=== PATIENT | female | born 1950 | race Caucasian/White ===

== ENCOUNTER 2021-01-08 15:46 | Inpatient (IN) | payer MEDICARE, MEDICAID ==
[~2021-01-08] VITALS: Ht 152.4 cm; Wt 27.0 kg
[2021-01-08] MEDS ORDERED: SODIUM CHLORIDE 0.9% 1,000 ML IV ONE ×2 (16:00→19:30)
[2021-01-08] MEDS ORDERED: DexAMETHasone SOD PHOS 10MG/1ML VIAL INJ IV ONE (16:00)
[2021-01-08] MEDS ORDERED: cefTRIAXone 1GM/50ML D5W 50 ML IV ONE (16:00)
[2021-01-08 17:38] LABS: Basophils # (auto) 0.1 10 ^3/uL (0-0.2); Basophils % (auto) 1.9 % (0.0-2.0); Eosinophils # (auto) 0 10 ^3/uL (0-0.8); Eosinophils % (auto) 0.1 % (0.0-7.0); Hemoglobin 11.2 g/dL (12.2-16.2); Lymphocytes # (auto) 0.6 10 ^3/uL (0.4-5.4); Lymphocytes % (auto) 15.7 % (10.0-50.0); Mean Corpuscular Hemoglobin 33.1 pg (28.0-32.0); Mean Corpuscular Hgb Conc. 33.8 g/dL (32.0-36.0); Mean Corpuscular Volume 97.7 fL (80.0-100.0); Monocytes # (auto) 0.2 10 ^3/uL (0-1.3); Monocytes % (auto) 6.1 % (0.0-12.0); Neutrophils # (auto) 3.1 10 ^3/uL (1.6-8.6); Neutrophils % (auto) 76.2 % (37.0-80.0); Nucleated Red Blood Cells % 0.2 %; Platelet Count (auto) 324 10^3/uL (140-450); Red Blood Cells 3.38 10^6/uL (4.0-5.20); Red Cell Distribution Width 14.1 % (11.8-14.3); White Blood Cell 4.1 10^3/uL (4.4-10.8)
[2021-01-08 18:06] LABS: Albumin 2.7 g/dL (3.4-5.0); Calcium 8.7 mg/dL (8.5-10.1); Potassium 4.3 mmol/L (3.5-5.1)
[2021-01-08 18:15] LABS: BUN/Creatinine Ratio 22.9; Bilirubin, Total 0.2 mg/dL (0.2-1.0); CRP High Sensitivity 3.69 mg/dL (< 0.3); Total Protein 7.2 g/dL (6.4-8.2)
[2021-01-08] MEDS ORDERED: ENOXAPARIN SOD 40 MG/0.4 ML SYRINGE SC ONE (18:30)
[2021-01-08] MEDS ORDERED: MORPHINE SULF INJ 2 MG/ML SYRINGE 1ML IV PRN (19:30)
[2021-01-08] MEDS ORDERED: REMDESIVIR PER PHARMACY 0 ML IV SCH (19:30)
[2021-01-08] MEDS ORDERED: ACETAMINOPHEN 500 MG TAB PO PRN (19:30)
[2021-01-08] MEDS ORDERED: NITROGLYCERIN 0.4 MG SL TAB SL PRN (19:30)
[2021-01-08 19:34] VITALS: BP 132/69
[2021-01-08 20:40] VITALS: BP 122/71
[2021-01-08 22:24] VITALS: BP 122/71
[2021-01-08] MEDS: CARBIDOPA W LEVODOPA 25/100mg TABLET PO SCH (22:37)
[2021-01-08] MEDS: DOXYCYCLINE 100MG/250ML 250 ML IV SCH (22:37)
[2021-01-08] MEDS ORDERED: TEMAZEPAM 15 MG CAP PO ONE (22:45)
[2021-01-08] MEDS ORDERED: PNEUMOCOCCAL VACC POLYS 25 MCG/0.5 ML VIAL IM ONE (23:00)
[2021-01-08] MEDS ORDERED: CARB25TA22 PO (23:06)
[2021-01-08] MEDS ORDERED: ONDA-144 PO (23:06)
[2021-01-08] MEDS ORDERED: NAP500T PO (23:06)
[2021-01-08] MEDS ORDERED: LOSA25TA2 PO (23:06)
[2021-01-08] MEDS ORDERED: MELO1TAB56 PO (23:06)
[2021-01-08] MEDS ORDERED: LEVO112T4 PO (23:06)
[2021-01-08] MEDS ORDERED: MIRT-66 PO (23:06)
[2021-01-09 05:00] VITALS: BP 136/74
[2021-01-09] MEDS: CARBIDOPA W LEVODOPA 25/100mg TABLET PO SCH ×3 (06:37→22:16)
[2021-01-09 06:39] LABS: Basophils # (auto) 0 10 ^3/uL (0-0.2); Basophils % (auto) 0.4 % (0.0-2.0); Eosinophils # (auto) 0 10 ^3/uL (0-0.8); Hematocrit 28.6 % (36.0-46.0); Hemoglobin 9.8 g/dL (12.2-16.2); Lymphocytes # (auto) 0.4 10 ^3/uL (0.4-5.4); Lymphocytes % (auto) 15.9 % (10.0-50.0); Mean Corpuscular Hemoglobin 33.8 pg (28.0-32.0); Mean Corpuscular Hgb Conc. 34.4 g/dL (32.0-36.0); Mean Corpuscular Volume 98.3 fL (80.0-100.0); Monocytes # (auto) 0.1 10 ^3/uL (0-1.3); Monocytes % (auto) 3.6 % (0.0-12.0); Neutrophils # (auto) 2.2 10 ^3/uL (1.6-8.6); Neutrophils % (auto) 80.1 % (37.0-80.0); Nucleated Red Blood Cells % 0.2 %; Platelet Count (auto) 303 10^3/uL (140-450); Red Blood Cells 2.92 10^6/uL (4.0-5.20); Red Cell Distribution Width 14.2 % (11.8-14.3); White Blood Cell 2.8 10^3/uL (4.4-10.8)
[2021-01-09 06:55] LABS: Albumin 2.3 g/dL (3.4-5.0); Calcium 8.1 mg/dL (8.5-10.1); Potassium 4.5 mmol/L (3.5-5.1)
[2021-01-09 07:00] LABS: Bilirubin, Total 0.2 mg/dL (0.2-1.0); Total Protein 6.5 g/dL (6.4-8.2)
[2021-01-09 08:00] VITALS: BP 129/74
[2021-01-09] MEDS: ALBUTEROL SULF HFA 90MCG INH 200DOSE IN PRN (09:53)
[2021-01-09] MEDS: DexAMETHasone SOD PHOS 10MG/1ML VIAL INJ IV SCH (10:08)
[2021-01-09] MEDS: ASCORBIC ACID 1,000 MG TAB PO SCH (10:08)
[2021-01-09] MEDS: CHOLECALCIFEROL (VITD3) 2,000 UNIT CAP/TAB PO SCH (10:08)
[2021-01-09] MEDS: DOXYCYCLINE 100MG/250ML 250 ML IV SCH ×2 (10:08→22:15)
[2021-01-09] MEDS: ZINC SULFATE 220mg CAP or TAB PO SCH (10:08)
[2021-01-09] MEDS: ENOXAPARIN SOD 40 MG/0.4 ML SYRINGE SC SCH ×2 (10:09→22:16)
[2021-01-09 11:40] LABS: Urine Bacteria FEW /hpf (None Seen); Urine Blood Negative /uL (Negative); Urine Specific Gravity 1.016 (1.001-1.035); Urine WBC 13 /hpf (0 - 5)
[2021-01-09 12:00] VITALS: BP 137/74
[2021-01-09] MEDS ORDERED: REMDESIVIR IV ONE (15:00)
[2021-01-09] MEDS ORDERED: REMDESIVIR PER PHARMACY 0 ML IV SCH (15:00)
[2021-01-09] MEDS ORDERED: SODIUM CHL 0.9% IV ONE (15:00)
[2021-01-09] MEDS ORDERED: NICOTINE 14 MG/24HR TOPICAL PATCH TD ONE (15:00)
[2021-01-09 15:12] LABS: % Iron Saturation 12.9 % (15-50)
[2021-01-09 16:00] VITALS: BP 138/85
[2021-01-09] MEDS: ACCU-CHEK COMFORT CURVE STRIP VI SCH ×2 (19:01→22:17)
[2021-01-09] MEDS: InsuLIN REG 1unit/0.01ml Soln (100units/ml) SC SCH ×2 (19:04→22:00)
[2021-01-09 22:03] VITALS: BP 148/67
[2021-01-09] MEDS: MIRTAZAPINE 30 MG TAB PO SCH (22:16)
[2021-01-09] MEDS ORDERED: TEMAZEPAM 15 MG CAP PO PRN (23:00)
[2021-01-10] VITALS (7 sets, daily range): BP systolic 126–145; BP diastolic 63–83
[2021-01-10] MEDS: CARBIDOPA W LEVODOPA 25/100mg TABLET PO SCH ×3 (06:25→21:46)
[2021-01-10] MEDS: LEVOTHYROXINE SODIUM 100 MCG TAB PO SCH (06:25)
[2021-01-10] MEDS: InsuLIN REG 1unit/0.01ml Soln (100units/ml) SC SCH ×4 (06:26→22:00)
[2021-01-10] MEDS: ACCU-CHEK COMFORT CURVE STRIP VI SCH ×4 (06:26→21:46)
[2021-01-10 07:32] LABS: Basophils # (auto) 0 10 ^3/uL (0-0.2); Basophils % (auto) 0.3 % (0.0-2.0); Eosinophils # (auto) 0 10 ^3/uL (0-0.8); Hematocrit 33.8 % (36.0-46.0); Lymphocytes # (auto) 0.6 10 ^3/uL (0.4-5.4); Lymphocytes % (auto) 6.4 % (10.0-50.0); Mean Corpuscular Hemoglobin 33.1 pg (28.0-32.0); Mean Corpuscular Hgb Conc. 32.6 g/dL (32.0-36.0); Mean Corpuscular Volume 101.4 fL (80.0-100.0); Monocytes # (auto) 0.5 10 ^3/uL (0-1.3); Monocytes % (auto) 5.1 % (0.0-12.0); Neutrophils # (auto) 8.8 10 ^3/uL (1.6-8.6); Neutrophils % (auto) 88.2 % (37.0-80.0); Nucleated Red Blood Cells % 0.3 %; Platelet Count (auto) 398 10^3/uL (140-450); Red Blood Cells 3.33 10^6/uL (4.0-5.20); Red Cell Distribution Width 14.9 % (11.8-14.3)
[2021-01-10 07:45] LABS: INR 0.92 (0.9-1.15)
[2021-01-10 08:15] LABS: BUN/Creatinine Ratio 30.7
[2021-01-10 08:16] LABS: Albumin 2.8 g/dL (3.4-5.0); Bilirubin, Total 0.3 mg/dL (0.2-1.0); Calcium 8.5 mg/dL (8.5-10.1); Magnesium 2.3 mg/dL (1.6-2.6); Total Protein 7.4 g/dL (6.4-8.2)
[2021-01-10] MEDS: DexAMETHasone SOD PHOS 10MG/1ML VIAL INJ IV SCH (09:32)
[2021-01-10] MEDS: DOXYCYCLINE 100MG/250ML 250 ML IV SCH ×2 (09:32→21:45)
[2021-01-10] MEDS: ZINC SULFATE 220mg CAP or TAB PO SCH (09:32)
[2021-01-10] MEDS: ASCORBIC ACID 1,000 MG TAB PO SCH (09:32)
[2021-01-10] MEDS: CHOLECALCIFEROL (VITD3) 2,000 UNIT CAP/TAB PO SCH (09:33)
[2021-01-10] MEDS: ENOXAPARIN SOD 40 MG/0.4 ML SYRINGE SC SCH ×2 (09:33→21:47)
[2021-01-10] MEDS: NICOTINE 14 MG/24HR TOPICAL PATCH TD SCH (09:34)
[2021-01-10] MEDS: SODIUM CHL 0.9% IV SCH (15:29)
[2021-01-10] MEDS: REMDESIVIR IV SCH (15:29)
[2021-01-10] MEDS: MIRTAZAPINE 30 MG TAB PO SCH (21:46)
[2021-01-10] MEDS: ALBUTEROL SULF HFA 90MCG INH 200DOSE IN PRN (22:55)
[2021-01-11 05:29] VITALS: BP 150/82
[2021-01-11] MEDS: CARBIDOPA W LEVODOPA 25/100mg TABLET PO SCH ×3 (06:22→22:18)
[2021-01-11] MEDS: ACCU-CHEK COMFORT CURVE STRIP VI SCH ×4 (06:23→22:18)
[2021-01-11] MEDS: LEVOTHYROXINE SODIUM 100 MCG TAB PO SCH (06:23)
[2021-01-11] MEDS: InsuLIN REG 1unit/0.01ml Soln (100units/ml) SC SCH ×4 (06:23→22:00)
[2021-01-11] MEDS: DEXTROSE (50%) 50ML SYRG IV PRN ×2 (07:08→17:53)
[2021-01-11 08:00] VITALS: BP 154/80
[2021-01-11 08:41] VITALS: BP 154/80
[2021-01-11] MEDS: ZINC SULFATE 220mg CAP or TAB PO SCH (09:34)
[2021-01-11] MEDS: CHOLECALCIFEROL (VITD3) 2,000 UNIT CAP/TAB PO SCH (09:34)
[2021-01-11] MEDS: ASCORBIC ACID 1,000 MG TAB PO SCH (09:34)
[2021-01-11] MEDS: ENOXAPARIN SOD 40 MG/0.4 ML SYRINGE SC SCH ×2 (09:34→22:18)
[2021-01-11] MEDS: DexAMETHasone SOD PHOS 10MG/1ML VIAL INJ IV SCH (09:35)
[2021-01-11] MEDS: NICOTINE 14 MG/24HR TOPICAL PATCH TD SCH (09:35)
[2021-01-11] MEDS: DOXYCYCLINE 100MG/250ML 250 ML IV SCH ×2 (09:36→22:55)
[2021-01-11] MEDS: ALBUTEROL SULF HFA 90MCG INH 200DOSE IN PRN (10:04)
[2021-01-11 12:50] VITALS: BP 146/84
[2021-01-11] MEDS: SODIUM CHL 0.9% IV SCH (15:26)
[2021-01-11] MEDS: REMDESIVIR IV SCH (15:26)
[2021-01-11 16:32] VITALS: BP 142/84
[2021-01-11] MEDS ORDERED: PPN PER PHARMACY 0 ML IV SCH (16:45)
[2021-01-11] MEDS ORDERED: PANTOPRAZOLE 40 MG/10 ML VIAL INJ IV ONE (17:00)
[2021-01-11 20:00] VITALS: BP 149/81
[2021-01-11] MEDS ORDERED: AMINO ACID INFUSION IN D10W 1,000 ML IV NR (20:00)
[2021-01-11] MEDS: MIRTAZAPINE 30 MG TAB PO SCH (22:18)
[2021-01-12] VITALS (7 sets, daily range): BP systolic 130–152; BP diastolic 70–85
[2021-01-12] MEDS: CARBIDOPA W LEVODOPA 25/100mg TABLET PO SCH ×3 (06:34→22:06)
[2021-01-12] MEDS: LEVOTHYROXINE SODIUM 100 MCG TAB PO SCH (06:34)
[2021-01-12] MEDS: ACCU-CHEK COMFORT CURVE STRIP VI SCH ×4 (06:35→23:43)
[2021-01-12] MEDS: InsuLIN REG 1unit/0.01ml Soln (100units/ml) SC SCH ×4 (06:35→23:43)
[2021-01-12 06:53] LABS: Basophils # (auto) 0 10 ^3/uL (0-0.2); Basophils % (auto) 0.2 % (0.0-2.0); Eosinophils # (auto) 0 10 ^3/uL (0-0.8); Hematocrit 28.4 % (36.0-46.0); Hemoglobin 9.8 g/dL (12.2-16.2); Lymphocytes # (auto) 0.8 10 ^3/uL (0.4-5.4); Lymphocytes % (auto) 8.6 % (10.0-50.0); Mean Corpuscular Hemoglobin 32.8 pg (28.0-32.0); Mean Corpuscular Hgb Conc. 34.7 g/dL (32.0-36.0); Mean Corpuscular Volume 94.8 fL (80.0-100.0); Monocytes # (auto) 0.7 10 ^3/uL (0-1.3); Monocytes % (auto) 7.7 % (0.0-12.0); Neutrophils # (auto) 7.7 10 ^3/uL (1.6-8.6); Neutrophils % (auto) 83.5 % (37.0-80.0); Nucleated Red Blood Cells % 0.2 %; Platelet Count (auto) 400 10^3/uL (140-450); Red Cell Distribution Width 14.2 % (11.8-14.3); White Blood Cell 9.2 10^3/uL (4.4-10.8)
[2021-01-12 07:03] LABS: INR 0.99 (0.9-1.15)
[2021-01-12 07:06] LABS: Potassium 3.5 mmol/L (3.5-5.1)
[2021-01-12 07:18] LABS: Albumin 2.7 g/dL (3.4-5.0); BUN/Creatinine Ratio 51.4; Bilirubin, Total 0.5 mg/dL (0.2-1.0); Calcium 8.4 mg/dL (8.5-10.1); Magnesium 1.9 mg/dL (1.6-2.6); Total Protein 6.4 g/dL (6.4-8.2)
[2021-01-12 07:20] LABS: Pre Albumin 12.2 mg/dL (20.0-40.0)
[2021-01-12] MEDS: ALBUTEROL SULF HFA 90MCG INH 200DOSE IN PRN (09:52)
[2021-01-12] MEDS: DOXYCYCLINE 100MG/250ML 250 ML IV SCH ×2 (09:54→22:05)
[2021-01-12] MEDS: ZINC SULFATE 220mg CAP or TAB PO SCH (09:54)
[2021-01-12] MEDS: ENOXAPARIN SOD 40 MG/0.4 ML SYRINGE SC SCH (09:55)
[2021-01-12] MEDS: NICOTINE 14 MG/24HR TOPICAL PATCH TD SCH (09:55)
[2021-01-12] MEDS: PANTOPRAZOLE 40 MG/10 ML VIAL INJ IV SCH ×2 (10:00→22:05)
[2021-01-12] MEDS: CHOLECALCIFEROL (VITD3) 2,000 UNIT CAP/TAB PO SCH (10:00)
[2021-01-12] MEDS: ASCORBIC ACID 1,000 MG TAB PO SCH (10:00)
[2021-01-12] MEDS: DexAMETHasone SOD PHOS 10MG/1ML VIAL INJ IV SCH (10:38)
[2021-01-12] MEDS ORDERED: POTASSIUM CHL 20MEQ/100ML 100 ML IV ONE (11:30)
[2021-01-12] MEDS ORDERED: MAGNESIUM SULFATE 1GM/100ML 100 ML IV ONE (11:30)
[2021-01-12] MEDS ORDERED: DEXTROSE (50%) 50ML SYRG IV SCH (12:00)
[2021-01-12] MEDS ORDERED: SODIUM PHOSPHATES 20 MEQ in SODIUM CHL 0.9% 100 ML IV ONE (12:00)
[2021-01-12] MEDS: SUCRALFATE 1 GM/10 ML ORAL SUSP PO SCH ×3 (12:35→22:06)
[2021-01-12] MEDS: SODIUM CHL 0.9% IV SCH (14:36)
[2021-01-12] MEDS: REMDESIVIR IV SCH (14:36)
[2021-01-12] MEDS ORDERED: ACETAMINOPHEN 325 MG TAB PO PRN (16:15)
[2021-01-12] MEDS ORDERED: PPN PER PHARMACY IV NR ×9 (20:00)
[2021-01-12] MEDS: MIRTAZAPINE 30 MG TAB PO SCH (22:06)
[2021-01-13 05:00] VITALS: BP 171/98
[2021-01-13 05:30] VITALS: BP 153/92
[2021-01-13] MEDS: CARBIDOPA W LEVODOPA 25/100mg TABLET PO SCH ×3 (05:32→22:05)
[2021-01-13] MEDS: ACCU-CHEK COMFORT CURVE STRIP VI SCH ×3 (05:33→18:00)
[2021-01-13] MEDS: InsuLIN REG 1unit/0.01ml Soln (100units/ml) SC SCH ×3 (05:33→18:00)
[2021-01-13] MEDS: LEVOTHYROXINE SODIUM 100 MCG TAB PO SCH (06:58)
[2021-01-13] MEDS: SUCRALFATE 1 GM/10 ML ORAL SUSP PO SCH ×4 (06:58→22:00)
[2021-01-13 07:08] LABS: Albumin 2.5 g/dL (3.4-5.0); Calcium 7.9 mg/dL (8.5-10.1); Magnesium 2.2 mg/dL (1.6-2.6); Potassium 3.5 mmol/L (3.5-5.1)
[2021-01-13 07:09] LABS: Hematocrit 26.1 % (36.0-46.0); Hemoglobin 8.9 g/dL (12.2-16.2)
[2021-01-13 07:11] LABS: Bilirubin, Total 0.3 mg/dL (0.2-1.0); Total Protein 6.1 g/dL (6.4-8.2)
[2021-01-13 08:46] VITALS: BP 144/72
[2021-01-13] MEDS: NICOTINE 14 MG/24HR TOPICAL PATCH TD SCH (10:00)
[2021-01-13] MEDS: CHOLECALCIFEROL (VITD3) 2,000 UNIT CAP/TAB PO SCH (11:08)
[2021-01-13] MEDS: PANTOPRAZOLE 40 MG/10 ML VIAL INJ IV SCH ×2 (11:08→22:05)
[2021-01-13] MEDS: ZINC SULFATE 220mg CAP or TAB PO SCH (11:08)
[2021-01-13] MEDS: ASCORBIC ACID 1,000 MG TAB PO SCH (11:08)
[2021-01-13] MEDS: DexAMETHasone SOD PHOS 10MG/1ML VIAL INJ IV SCH (11:24)
[2021-01-13] MEDS: DOXYCYCLINE 100MG/250ML 250 ML IV SCH (11:25)
[2021-01-13 13:00] VITALS: BP 107/69
[2021-01-13] MEDS: REMDESIVIR IV SCH (15:00)
[2021-01-13] MEDS: SODIUM CHL 0.9% IV SCH (15:00)
[2021-01-13 17:00] VITALS: BP 140/70
[2021-01-13] MEDS ORDERED: PPN PER PHARMACY IV NR ×11 (20:00)
[2021-01-13 22:00] VITALS: BP 148/91
[2021-01-13] MEDS: MIRTAZAPINE 30 MG TAB PO SCH (22:05)
[2021-01-14 05:00] VITALS: BP 148/80
[2021-01-14] MEDS: ACCU-CHEK COMFORT CURVE STRIP VI SCH ×4 (05:58→18:40)
[2021-01-14] MEDS: InsuLIN REG 1unit/0.01ml Soln (100units/ml) SC SCH ×4 (05:59→18:00)
[2021-01-14] MEDS: CARBIDOPA W LEVODOPA 25/100mg TABLET PO SCH ×3 (05:59→22:13)
[2021-01-14] MEDS: LEVOTHYROXINE SODIUM 100 MCG TAB PO SCH (07:00)
[2021-01-14] MEDS: SUCRALFATE 1 GM/10 ML ORAL SUSP PO SCH ×4 (07:00→22:13)
[2021-01-14 08:41] LABS: Hematocrit 25.3 % (36.0-46.0); Hemoglobin 8.6 g/dL (12.2-16.2)
[2021-01-14 08:52] LABS: Potassium 3.5 mmol/L (3.5-5.1)
[2021-01-14 08:59] LABS: Albumin 2.5 g/dL (3.4-5.0); BUN/Creatinine Ratio 61.1; Bilirubin, Total 0.4 mg/dL (0.2-1.0); Calcium 8.4 mg/dL (8.5-10.1); Magnesium 2.2 mg/dL (1.6-2.6); Phosphorus 2.6 mg/dL (2.5-4.90); Total Protein 5.9 g/dL (6.4-8.2)
[2021-01-14 09:00] VITALS: BP 118/87
[2021-01-14] MEDS: NICOTINE 14 MG/24HR TOPICAL PATCH TD SCH (10:00)
[2021-01-14] MEDS: DexAMETHasone SOD PHOS 10MG/1ML VIAL INJ IV SCH (11:27)
[2021-01-14] MEDS: PANTOPRAZOLE 40 MG/10 ML VIAL INJ IV SCH ×2 (11:29→22:13)
[2021-01-14] MEDS: ZINC SULFATE 220mg CAP or TAB PO SCH (11:32)
[2021-01-14] MEDS: ASCORBIC ACID 1,000 MG TAB PO SCH (11:32)
[2021-01-14] MEDS: CHOLECALCIFEROL (VITD3) 2,000 UNIT CAP/TAB PO SCH (11:33)
[2021-01-14 12:37] VITALS: BP 103/68
[2021-01-14 16:57] VITALS: BP 132/68
[2021-01-14 19:38] VITALS: BP 132/68
[2021-01-14] MEDS ORDERED: PPN PER PHARMACY IV NR ×9 (20:00)
[2021-01-14] MEDS: ALBUTEROL SULF HFA 90MCG INH 200DOSE IN PRN (22:11)
[2021-01-14] MEDS: MIRTAZAPINE 30 MG TAB PO SCH (22:13)
[2021-01-14 22:57] VITALS: BP 99/50
[2021-01-15 05:09] VITALS: BP 136/69
[2021-01-15] MEDS: InsuLIN REG 1unit/0.01ml Soln (100units/ml) SC SCH ×3 (06:00→12:00)
[2021-01-15] MEDS: CARBIDOPA W LEVODOPA 25/100mg TABLET PO SCH ×2 (06:00→14:02)
[2021-01-15] MEDS: ACCU-CHEK COMFORT CURVE STRIP VI SCH ×3 (06:00→12:05)
[2021-01-15] MEDS: SUCRALFATE 1 GM/10 ML ORAL SUSP PO SCH ×3 (06:48→17:00)
[2021-01-15] MEDS: LEVOTHYROXINE SODIUM 100 MCG TAB PO SCH (06:48)
[2021-01-15 07:21] LABS: Hemoglobin 8.2 g/dL (12.2-16.2)
[2021-01-15 07:23] LABS: Hematocrit 23.1 % (36.0-46.0)
[2021-01-15 07:35] LABS: Albumin 2.4 g/dL (3.4-5.0); Calcium 7.7 mg/dL (8.5-10.1); Magnesium 2.1 mg/dL (1.6-2.6); Potassium 3.8 mmol/L (3.5-5.1)
[2021-01-15 07:40] LABS: BUN/Creatinine Ratio 63.4; Bilirubin, Total 0.4 mg/dL (0.2-1.0); Phosphorus 3.7 mg/dL (2.5-4.90); Total Protein 5.7 g/dL (6.4-8.2)
[2021-01-15 09:00] VITALS: BP 112/69
[2021-01-15] MEDS: PANTOPRAZOLE 40 MG/10 ML VIAL INJ IV SCH (09:35)
[2021-01-15] MEDS: DexAMETHasone SOD PHOS 10MG/1ML VIAL INJ IV SCH (09:35)
[2021-01-15] MEDS: ZINC SULFATE 220mg CAP or TAB PO SCH (09:35)
[2021-01-15] MEDS: CHOLECALCIFEROL (VITD3) 2,000 UNIT CAP/TAB PO SCH (09:36)
[2021-01-15] MEDS: ASCORBIC ACID 1,000 MG TAB PO SCH (09:36)
[2021-01-15] MEDS: NICOTINE 14 MG/24HR TOPICAL PATCH TD SCH (09:46)
[2021-01-15 13:00] VITALS: BP 103/62
[2021-01-15] MEDS ORDERED: CHOL20007 PO (13:09)
[2021-01-15] MEDS ORDERED: DEX4T PO (13:09)
[2021-01-15] MEDS ORDERED: SUCR1TAB22 PO (13:09)
[2021-01-15] MEDS ORDERED: PANT40TA2 PO (13:09)
[2021-01-15] MEDS ORDERED: ZINC220T6 PO (13:09)
[2021-01-15] MEDS ORDERED: ALBUAER3 IN (13:09)
[2021-01-15] MEDS ORDERED: ASCO10003 PO (13:09)
[2021-01-15 17:15] VITALS: BP 116/67
[2021-01-15 18:24] VITALS: BP 116/67
[2021-01-15] MEDS ORDERED: PPN PER PHARMACY IV NR ×11 (20:00)
== END 2021-01-15 19:10 | disposition hospice, home (50) | DRG 871 ==
LOC: ER 15:46 → TELE-DOU 19:22 → TELE-EAST 20:40
PROVIDERS: ADMIT Nurse Practitioner Acute Care; ATTEND Internal Medicine
PROC: XW033E5 Introduction of Remdesivir Anti-infective into Peripheral Vein, Percutaneous Approach, New Technology Group 5 (ICD-10-PCS; principal; 2021-01-08)
PROC: 05HB33Z Insertion of Infusion Device into Right Basilic Vein, Percutaneous Approach (ICD-10-PCS; 2021-01-10)
PROC: B54MZZA Ultrasonography of Right Upper Extremity Veins, Guidance (ICD-10-PCS; 2021-01-10)
PROC: 0T9B70Z Drainage of Bladder with Drainage Device, Via Natural or Artificial Opening (ICD-10-PCS; 2021-01-12)
DX: A41.89 Other specified sepsis (principal); U07.1 COVID-19; J12.82 Pneumonia due to coronavirus disease 2019; I21.A1 Myocardial infarction type 2; N17.0 Acute kidney failure with tubular necrosis; J96.01 Acute respiratory failure with hypoxia; E46 Unspecified protein-calorie malnutrition; R64 Cachexia; K92.0 Hematemesis; D62 Acute posthemorrhagic anemia; K92.2 Gastrointestinal hemorrhage, unspecified; Z68.1 Body mass index [BMI] 19.9 or less, adult; D89.839 Cytokine release syndrome, grade unspecified; E78.5 Hyperlipidemia, unspecified; R62.7 Adult failure to thrive; G20 Parkinson's disease; F02.80 Dementia in other diseases classified elsewhere, unspecified severity, without behavioral disturbance, psychotic disturbance, mood disturbance, and anxiety; R79.89 Other specified abnormal findings of blood chemistry; N18.32 Chronic kidney disease, stage 3b; E03.9 Hypothyroidism, unspecified; E55.9 Vitamin D deficiency, unspecified; Z79.899 Other long term (current) drug therapy; Z79.891 Long term (current) use of opiate analgesic; Z79.01 Long term (current) use of anticoagulants; D63.8 Anemia in other chronic diseases classified elsewhere
CPT/HCPCS: 36415; 71045; 80053; 80061; 81001; 82040; 82270; 82306; 82728; 82962; 83036; 83540; 83550; 83615; 83735; 83880; 84100; 84443; 84478; 84484; 85014; 85018; 85025; 85379; 85610; 86141; 87426; 87493; 92610; 93306; 93970; 94640; 96365; 96372; 96375; 97110; 97116; 97530; C9113; G0378; J0696; J1100; J1815; J3480; J3490